=== PATIENT | female | born 1995 | race American Indian/Alaskan Native ===

== ENCOUNTER 2017-08-11 17:19 | Inpatient (IN) | payer MEDICAID ==
[2017-08-11] MEDS ORDERED: Misoprostol 50 MCG (1/2 of 100 MCG) Tab VAG ONE (17:41)
[2017-08-11] MEDS ORDERED: Acetaminophen 325 MG Tab PO PRN (18:14)
[2017-08-11] MEDS ORDERED: fentaNYL 100 MCG/2 ML SDV IVPUSH PRN (18:14)
[2017-08-11] MEDS ORDERED: Sodium Chloride 0.9% 10 ML Syringe FLUSH PRN (18:14)
[2017-08-11] MEDS ORDERED: Lactated Ringers 1,000 ML IV ONE ×2 (18:20)
[2017-08-11] MEDS ORDERED: ePHEDrine 50 MG/ML SDV IVPUSH ONE (18:20)
--- NOTE | 2017-08-11 18:26 | PCM.LDHP ---
L&D History of Present Illness - General Date of Service: 08/11/17 (labor) Admit Problem/Dx: Patient Status Order with Admit Dx/Problem 08/11/17 18:14 Patient Status [ADT] Routine Admission Diagnosis/Problem Admission Diagnosis/Problem Labor established Source of Information: Patient History Limitations: Reports: No Limitations - History of Present Illness Introduction:: Veronica has been in latent labor since last night. Over the course of the day her contractions have increased in duration and intensity. No leaking of fluid. Very uncomfortable.Returned at 1745 this evening as she just can't take it anymore. She has had adequate care and her GBS is negative HIV neg, Rubella immune, and ABO is A pos. SARATH 08/22/17 based on early US, LMP SARATH is 08/15/17 so she is somewhere around 39 weeks gestation. CE this evening 4/100/+1, AROM clear fluid Timing/Duration: Reports: minutes: (4), constant/continuous Location, : Reports: Abdomen Quality: Reports: Pressure Severity: Severe Improves with: Reports: None Worsens with: Reports: None Associated Symptoms: Reports: vaginal fluid - Related Data Allergies/Adverse Reactions: Allergies Allergy/AdvReac Type Severity Reaction Status Date / Time estradiol cypionate Allergy Bleeding Verified 06/08/16 00:08 [From Depo-Estradiol] Home Medications: Home Meds Vits #93/Iron Fum/FA [ Formula Tablet] 1 tab PO DAILY 08/11/17 [History] Past Medical History [facility] History: Reports: : 2 Para: 0 LMP (Approximate): (SARATH 08/22/17) Musculoskeletal History: Reports: Other (See Below) Other Musculoskeletal History: collarbone fx Dermatologic History: Reports: Other (See Below) Other Dermatologic History: excema Social & Family History - Tobacco Use Smoking Status *Q: Never Smoker - Recreational Drug Use Recreational Drug Use: No H&P Review of Systems - Review of Systems: Review Of Systems: See Below General: Reports: No Symptoms HEENT: Reports: No Symptoms Pulmonary: Reports: No Symptoms Cardiovascular: Reports: No Symptoms Gastrointestinal: Reports: No Symptoms Genitourinary: Reports: No Symptoms Musculoskeletal: Reports: No Symptoms Skin: Reports: No Symptoms Psychiatric: Reports: No Symptoms Neurological: Reports: No Symptoms Hematologic/Lymphatic: Reports: No Symptoms Immunologic: Reports: No Symptoms L&D Exam - Exam Exam: See Below - Vital Signs Vital Signs: Last Vital Signs Temp 99.3 F 08/11/17 17:30 Pulse 101 H 08/11/17 17:30 Resp 16 08/11/17 17:30 BP 128/77 08/11/17 17:30 Pulse Ox 95 08/11/17 17:30 Weight: 211 lb 10.3 oz - OB Specific Contraction Intensity: Strong Movement: Active Heart Tones: Present Heart Tones per Min: 140 Heart Rate (FHR) Variability: Moderate (6-25 bmp) Presentation: Vertex Estimated Weight: 8-9 pounds - Hogue Score Hogue Score Cervix Position: Posterior Hogue Score Consistency: Soft Hogue Score Effacement: >80% Hogue Score Dilation: 3-4 cm Hogue Score 's Station: +1, +2 Hogue Score Total: 10 - Exam General: Alert, Oriented HEENT: PERRLA, Hearing Intact, Mucosa Moist & Rector Neck: Supple Lungs: Clear to Auscultation Cardiovascular: Regular Rate GI/Abdominal Exam: Normal Bowel Sounds Rectal Exam: Normal Exam Genitourinary: Cervical dilitation, Enlarged uterus Back Exam: Normal Inspection, Full Range of Motion Extremities: Normal Inspection, Normal Range of Motion, Non-Tender, No Pedal Edema, Normal Capillary Refill Skin: Warm, Dry, Intact Neurological: Cranial Nerves Intact, Reflexes Equal Bilateral Psychiatric: Alert, Normal Affect, Normal Mood - Problem List (1) SNOMED Code(s): 34698665 ICD Code: Z34.90 - ENCNTR FOR SUPRVSN OF NORMAL , UNSP, UNSP TRIMESTER Status: Acute Current Visit: Yes Qualifiers: Weeks of gestation: 38 weeks Qualified Code(s): Z3A.38 - 38 weeks gestation of (2) Active labor SNOMED Code(s): 68995340 ICD Code: TQX0108 - Status: Acute Current Visit: Yes Problem List Initiated/Reviewed/Updated: Yes Orders Last 24hrs: Active Orders 24 hr Category Date Time Status Patient Status [ADT] Routine ADT 08/11/17 18:14 Ordered Antiembolic Devices [RC] .Routine Care 08/11/17 18:18 Ordered Communication Order [RC] ASDIRECTED Care 08/11/17 18:14 Ordered Heart Tones [RC] PER UNIT ROUTINE Care 08/11/17 18:14 Ordered Local Anesthetic Infusion Pump [RC] ASDIRECTED Care 08/11/17 18:20 Ordered Local Anesthetic Infusion Pump [RC] ASDIRECTED Care 08/11/17 18:20 Ordered May Shower [RC] ASDIRECTED Care 08/11/17 18:14 Ordered Notify Provider Vital Signs [RC] PRN Care 08/11/17 18:14 Ordered Notify Provider [RC] PRN Care 08/11/17 18:14 Ordered OB Check [OM.PC] Click to Edit Care 08/11/17 17:43 Ordered PCEA Epidural [RC] ASDIRECTED Care 08/11/17 18:20 Ordered PCEA Epidural [RC] ASDIRECTED Care 08/11/17 18:20 Ordered Up ad Ashley [RC] ASDIRECTED Care 08/11/17 18:14 Ordered VTE/DVT Education [RC] Click to Edit Care 08/11/17 18:18 Ordered Vital Signs [RC] PER UNIT ROUTINE Care 08/11/17 18:14 Ordered CBC W/O DIFF,HEMOGRAM [HEME] Routine Lab 08/11/17 18:14 Ordered DRUG SCREEN, URINE [URCHEM] Routine Lab 08/11/17 18:14 Uncollected Acetaminophen [Tylenol] Med 08/11/17 18:14 Ordered 650 mg PO Q4H PRN Lactated Ringers [Ringers, Lactated] 1,000 ml Med 08/11/17 18:20 Ordered IV .BOLUS Lactated Ringers [Ringers, Lactated] 1,000 ml Med 08/11/17 18:20 Ordered IV .BOLUS Ondansetron [Zofran ODT] Med 08/11/17 18:14 Ordered 4 mg PO Q4H PRN Sodium Chloride 0.9% [Saline Flush] Med 08/11/17 18:14 Ordered 10 ml FLUSH ASDIRECTED PRN ePHEDrine [ePHEDrine Sulfate] Med 08/11/17 18:20 Once 5 mg IVPUSH ONETIME ONE fentaNYL [Sublimaze] Med 08/11/17 18:14 Ordered 100 mcg IVPUSH Q1H PRN DVT/VTE Prophylaxis Reflex [OM.PC] Routine Oth 08/11/17 18:14 Ordered Epidural Catheter Management [OM.PC] Urgent Oth 08/11/17 18:20 Ordered Saline Lock Insert [OM.PC] Routine Oth 08/11/17 18:14 Ordered Resuscitation Status Routine Resus Stat 08/11/17 18:14 Ordered Medication Orders Acetaminophen (Tylenol) 650 mg PO Q4H PRN PRN Reason: Pain (Mild 1-3) and fever Fentanyl (Sublimaze) 100 mcg IVPUSH Q1H PRN PRN Reason: Pain (moderate 4-6) Ondansetron HCl (Zofran Odt) 4 mg PO Q4H PRN PRN Reason: Nausea/Vomiting Sodium Chloride (Saline Flush) 10 ml FLUSH ASDIRECTED PRN PRN Reason: Keep Vein Open Assessment/Plan Comment:: 08/11/17 38 4/7 22 yr old Active labor, AROM clear fluid GBS negative HIV neg ABO A pos Rubella immune requesting epidural for pain management She is a very difficult exam and the baby is low. Anticipate a vaginal delivery of a large baby
[2017-08-11] MEDS ORDERED: Ropivacaine 100 ML ONE (18:46)
[2017-08-11] MEDS ORDERED: Oxytocin 10 Units/1 ML SDV ONE ×3 (19:07→23:08)
[2017-08-11] MEDS ORDERED: Naloxone 0.4 MG/ML SDV ONE (19:07)
[2017-08-11] MEDS ORDERED: Lidocaine 1% 50 ML MDV ONE (19:07)
[2017-08-11] MEDS ORDERED: Lactated Ringers 1,000 ML IV SCH (19:15)
[2017-08-11] MEDS ORDERED: Naloxone 0.4 MG/ML SDV IVPUSH PRN (19:26)
[2017-08-11] MEDS ORDERED: ePHEDrine 50 MG/ML SDV IVPUSH PRN (19:26)
--- NOTE | 2017-08-11 19:48 | PCM.PNLD ---
Labor Progress Note - VS & Meds Vital Signs: Last Vital Signs Temp 100.1 F 08/11/17 19:11 Pulse 97 08/11/17 19:35 Resp 16 08/11/17 19:35 BP 113/73 08/11/17 19:35 Pulse Ox 99 08/11/17 19:35 Active Medications: Current Medications Acetaminophen (Tylenol) 650 mg PO Q4H PRN PRN Reason: Pain (Mild 1-3) and fever Ephedrine Sulfate (Ephedrine Sulfate) 5 - 10 mg IVPUSH ASDIRECTED PRN PRN Reason: IF SYSTOLIC BP LESS THAN 100 Fentanyl (Sublimaze) 100 mcg IVPUSH Q1H PRN PRN Reason: Pain (moderate 4-6) Lactated Ringer's (Ringers, Lactated) 1,000 mls @ 100 mls/hr IV ASDIRECTED HILARIO Last Admin: 08/11/17 19:15 Dose: 100 mls/hr Oxytocin/Sodium Chloride (Pitocin In Ns 20 Units/1,000 Ml) 1,000 mls @ 6 mls/ hr IV TITRATE HILARIO; 2 MUNITS/MIN PRN Reason: Protocol Naloxone HCl (Narcan) 0.1 mg IVPUSH Q5M PRN PRN Reason: IF RESP RATE LESS THAN 6 Ondansetron HCl (Zofran Odt) 4 mg PO Q4H PRN PRN Reason: Nausea/Vomiting Sodium Chloride (Saline Flush) 10 ml FLUSH ASDIRECTED PRN PRN Reason: Keep Vein Open Discontinued Medications Ephedrine Sulfate (Ephedrine Sulfate) 5 mg IVPUSH ONETIME ONE Stop: 08/11/17 18:21 Lactated Ringer's (Ringers, Lactated) 1,000 mls @ 999 mls/hr IV .BOLUS ONE Stop: 08/11/17 19:20 Last Admin: 08/11/17 18:15 Dose: 999 mls/hr Lactated Ringer's (Ringers, Lactated) 1,000 mls @ 999 mls/hr IV .BOLUS ONE Stop: 08/11/17 19:20 Last Admin: 08/11/17 19:14 Dose: Not Given Ropivacaine (Naropin 0.2%) Confirm Administered Dose 100 mls @ as directed .ROUTE .STK-MED ONE Stop: 08/11/17 18:47 Oxytocin/Sodium Chloride (Pitocin In Ns 20 Units/1,000 Ml) Confirm Administered Dose 20 unit in 1,000 mls @ as directed .ROUTE .STK-MED ONE Stop: 08/11/17 19:08 Lidocaine HCl (Xylocaine 1%) Confirm Administered Dose 100 ml .ROUTE .STK-MED ONE Stop: 08/11/17 19:08 Misoprostol (Cytotec) 50 mcg VAG ONETIME ONE Stop: 08/11/17 17:42 Naloxone HCl (Narcan) Confirm Administered Dose 0.4 mg .ROUTE .STK-MED ONE Stop: 08/11/17 19:08 Oxytocin (Pitocin) Confirm Administered Dose 10 unit .ROUTE .STK-MED ONE Stop: 08/11/17 19:08 - Uterine Contractions Uterine Monitoring Mode: External [place] Contraction Frequency (min): 2 Contraction Duration (sec): 60-110 Contraction Intensity: Moderate Uterine Resting Tone: Soft - Monitoring Heart Rate (FHR) Baseline: 140 Heart Rate (FHR) Variability: Moderate (6-25 bmp) Accelerations: Present, 15x15 Decelerations: None - Vaginal Exam Dilation (cm): 4 Effacement (Percent): 95 Station: -1 Cervical Position: Midposition Sterile Vaginal Exam Performed By: Ama Sierra - Labor Progress (Free Text) Labor Progress: contractions spacing out after epidural placed. Will add pitocin to actively manage labor. Veronica is now comfortable Hair in place and on peanut ball. Planning vaginal delivery.
[2017-08-11] MEDS ORDERED: Ropivacaine 100 ML EPIDUR SCH (20:33)
--- NOTE | 2017-08-11 20:48 | PCM.PNLD ---
Labor Progress Note - VS & Meds Vital Signs: Last Vital Signs Temp 98.9 F 08/11/17 20:15 Pulse 91 08/11/17 20:15 Resp 18 08/11/17 20:15 BP 126/82 08/11/17 20:15 Pulse Ox 99 08/11/17 20:15 Active Medications: Current Medications Acetaminophen (Tylenol) 650 mg PO Q4H PRN PRN Reason: Pain (Mild 1-3) and fever Ephedrine Sulfate (Ephedrine Sulfate) 5 - 10 mg IVPUSH ASDIRECTED PRN PRN Reason: IF SYSTOLIC BP LESS THAN 100 Fentanyl (Sublimaze) 100 mcg IVPUSH Q1H PRN PRN Reason: Pain (moderate 4-6) Lactated Ringer's (Ringers, Lactated) 1,000 mls @ 100 mls/hr IV ASDIRECTED HILARIO Last Admin: 08/11/17 19:15 Dose: 100 mls/hr Oxytocin/Sodium Chloride (Pitocin In Ns 20 Units/1,000 Ml) 20 unit in 1,000 mls @ 6 mls/hr IV TITRATE HILARIO; 2 MUNITS/MIN PRN Reason: Protocol Last Titration: 08/11/17 20:46 Dose: 2 munits/min, 6 mls/hr Ropivacaine (Naropin 0.2%) 100 mls @ 0 mls/hr EPIDUR ASDIRECTED HILARIO; Titrate PRN Reason: Protocol Naloxone HCl (Narcan) 0.1 mg IVPUSH Q5M PRN PRN Reason: IF RESP RATE LESS THAN 6 Ondansetron HCl (Zofran Odt) 4 mg PO Q4H PRN PRN Reason: Nausea/Vomiting Sodium Chloride (Saline Flush) 10 ml FLUSH ASDIRECTED PRN PRN Reason: Keep Vein Open Discontinued Medications Ephedrine Sulfate (Ephedrine Sulfate) 5 mg IVPUSH ONETIME ONE Stop: 08/11/17 18:21 Last Admin: 08/11/17 20:30 Dose: Not Given Lactated Ringer's (Ringers, Lactated) 1,000 mls @ 999 mls/hr IV .BOLUS ONE Stop: 08/11/17 19:20 Last Admin: 08/11/17 18:15 Dose: 999 mls/hr Lactated Ringer's (Ringers, Lactated) 1,000 mls @ 999 mls/hr IV .BOLUS ONE Stop: 08/11/17 19:20 Last Admin: 08/11/17 19:14 Dose: Not Given Ropivacaine (Naropin 0.2%) Confirm Administered Dose 100 mls @ as directed .ROUTE .STK-MED ONE Stop: 08/11/17 18:47 Oxytocin/Sodium Chloride (Pitocin In Ns 20 Units/1,000 Ml) Confirm Administered Dose 20 unit in 1,000 mls @ as directed .ROUTE .STK-MED ONE Stop: 08/11/17 19:08 Last Admin: 08/11/17 19:49 Dose: Not Given Lidocaine HCl (Xylocaine 1%) Confirm Administered Dose 100 ml .ROUTE .STK-MED ONE Stop: 08/11/17 19:08 Misoprostol (Cytotec) 50 mcg VAG ONETIME ONE Stop: 08/11/17 17:42 Naloxone HCl (Narcan) Confirm Administered Dose 0.4 mg .ROUTE .STK-MED ONE Stop: 08/11/17 19:08 Oxytocin (Pitocin) Confirm Administered Dose 10 unit .ROUTE .STK-MED ONE Stop: 08/11/17 19:08 - Uterine Contractions Uterine Monitoring Mode: External [place] Contraction Frequency (min): 2-6 Contraction Duration (sec): 40-70 Contraction Intensity: Moderate Uterine Resting Tone: Soft - Monitoring Heart Rate (FHR) Baseline: 140 Heart Rate (FHR) Variability: Moderate (6-25 bmp) Accelerations: Present, 15x15 Decelerations: None - Vaginal Exam Dilation (cm): 10 Effacement (Percent): 100 Station: 2 Cervical Position: Anterior Sterile Vaginal Exam Performed By: Mignon Sidhu Vaginal Exam Comment: will labor down for the next 30 minutes and cut the epidural some. She is pretty dense as far as feeling and leg mobilty. - Labor Progress (Free Text) Labor Progress: going well will push soon.
--- NOTE | 2017-08-11 21:52 | PCM.PNLD ---
Labor Progress Note - VS & Meds Vital Signs: Last Vital Signs Temp 99.4 F 08/11/17 20:45 Pulse 112 H 08/11/17 20:45 Resp 16 08/11/17 20:45 BP 132/94 H 08/11/17 20:45 Pulse Ox 97 08/11/17 20:45 Active Medications: Current Medications Acetaminophen (Tylenol) 650 mg PO Q4H PRN PRN Reason: Pain (Mild 1-3) and fever Ephedrine Sulfate (Ephedrine Sulfate) 5 - 10 mg IVPUSH ASDIRECTED PRN PRN Reason: IF SYSTOLIC BP LESS THAN 100 Fentanyl (Sublimaze) 100 mcg IVPUSH Q1H PRN PRN Reason: Pain (moderate 4-6) Lactated Ringer's (Ringers, Lactated) 1,000 mls @ 100 mls/hr IV ASDIRECTED HILARIO Last Admin: 08/11/17 19:15 Dose: 100 mls/hr Oxytocin/Sodium Chloride (Pitocin In Ns 20 Units/1,000 Ml) 20 unit in 1,000 mls @ 6 mls/hr IV TITRATE HILARIO; 2 MUNITS/MIN PRN Reason: Protocol Last Titration: 08/11/17 20:46 Dose: 2 munits/min, 6 mls/hr Ropivacaine (Naropin 0.2%) 100 mls @ 0 mls/hr EPIDUR ASDIRECTED HILARIO; Titrate PRN Reason: Protocol Naloxone HCl (Narcan) 0.1 mg IVPUSH Q5M PRN PRN Reason: IF RESP RATE LESS THAN 6 Ondansetron HCl (Zofran Odt) 4 mg PO Q4H PRN PRN Reason: Nausea/Vomiting Sodium Chloride (Saline Flush) 10 ml FLUSH ASDIRECTED PRN PRN Reason: Keep Vein Open Discontinued Medications Ephedrine Sulfate (Ephedrine Sulfate) 5 mg IVPUSH ONETIME ONE Stop: 08/11/17 18:21 Last Admin: 08/11/17 20:30 Dose: Not Given Lactated Ringer's (Ringers, Lactated) 1,000 mls @ 999 mls/hr IV .BOLUS ONE Stop: 08/11/17 19:20 Last Admin: 08/11/17 18:15 Dose: 999 mls/hr Lactated Ringer's (Ringers, Lactated) 1,000 mls @ 999 mls/hr IV .BOLUS ONE Stop: 08/11/17 19:20 Last Admin: 08/11/17 19:14 Dose: Not Given Ropivacaine (Naropin 0.2%) Confirm Administered Dose 100 mls @ as directed .ROUTE .STK-MED ONE Stop: 08/11/17 18:47 Oxytocin/Sodium Chloride (Pitocin In Ns 20 Units/1,000 Ml) Confirm Administered Dose 20 unit in 1,000 mls @ as directed .ROUTE .STK-MED ONE Stop: 08/11/17 19:08 Last Admin: 08/11/17 19:49 Dose: Not Given Lidocaine HCl (Xylocaine 1%) Confirm Administered Dose 100 ml .ROUTE .STK-MED ONE Stop: 08/11/17 19:08 Misoprostol (Cytotec) 50 mcg VAG ONETIME ONE Stop: 08/11/17 17:42 Naloxone HCl (Narcan) Confirm Administered Dose 0.4 mg .ROUTE .STK-MED ONE Stop: 08/11/17 19:08 Oxytocin (Pitocin) Confirm Administered Dose 10 unit .ROUTE .STK-MED ONE Stop: 08/11/17 19:08 - Uterine Contractions Uterine Monitoring Mode: External [place] Contraction Frequency (min): 2-6 Contraction Duration (sec): 40-70 Contraction Intensity: Moderate Uterine Resting Tone: Soft - Monitoring Heart Rate (FHR) Baseline: 140 Heart Rate (FHR) Variability: Moderate (6-25 bmp) Accelerations: Present, 15x15 Decelerations: None - Vaginal Exam Dilation (cm): 10 Effacement (Percent): 100 Station: 2 Cervical Position: Anterior Sterile Vaginal Exam Performed By: Mignon Sidhu Vaginal Exam Comment: epidural so dense. Unable to feel contractions. Epidural decreased. has some feeling in legs, poor pushing effort. rest until 2200 and try pushing again - Labor Progress (Free Text) Labor Progress: no progress with pushing
--- NOTE | 2017-08-11 22:47 | PCM.PNLD ---
Labor Progress Note - VS & Meds Vital Signs: Last Vital Signs Temp 98.1 F 08/11/17 22:00 Pulse 92 08/11/17 22:00 Resp 16 08/11/17 22:00 BP 117/69 08/11/17 22:00 Pulse Ox 94 L 08/11/17 22:00 Active Medications: Current Medications Acetaminophen (Tylenol) 650 mg PO Q4H PRN PRN Reason: Pain (Mild 1-3) and fever Ephedrine Sulfate (Ephedrine Sulfate) 5 - 10 mg IVPUSH ASDIRECTED PRN PRN Reason: IF SYSTOLIC BP LESS THAN 100 Fentanyl (Sublimaze) 100 mcg IVPUSH Q1H PRN PRN Reason: Pain (moderate 4-6) Lactated Ringer's (Ringers, Lactated) 1,000 mls @ 100 mls/hr IV ASDIRECTED HILARIO Last Admin: 08/11/17 19:15 Dose: 100 mls/hr Oxytocin/Sodium Chloride (Pitocin In Ns 20 Units/1,000 Ml) 20 unit in 1,000 mls @ 6 mls/hr IV TITRATE HILARIO; 2 MUNITS/MIN PRN Reason: Protocol Last Titration: 08/11/17 20:46 Dose: 2 munits/min, 6 mls/hr Ropivacaine (Naropin 0.2%) 100 mls @ 0 mls/hr EPIDUR ASDIRECTED HILARIO; Titrate PRN Reason: Protocol Naloxone HCl (Narcan) 0.1 mg IVPUSH Q5M PRN PRN Reason: IF RESP RATE LESS THAN 6 Ondansetron HCl (Zofran Odt) 4 mg PO Q4H PRN PRN Reason: Nausea/Vomiting Sodium Chloride (Saline Flush) 10 ml FLUSH ASDIRECTED PRN PRN Reason: Keep Vein Open Discontinued Medications Ephedrine Sulfate (Ephedrine Sulfate) 5 mg IVPUSH ONETIME ONE Stop: 08/11/17 18:21 Last Admin: 08/11/17 20:30 Dose: Not Given Lactated Ringer's (Ringers, Lactated) 1,000 mls @ 999 mls/hr IV .BOLUS ONE Stop: 08/11/17 19:20 Last Admin: 08/11/17 18:15 Dose: 999 mls/hr Lactated Ringer's (Ringers, Lactated) 1,000 mls @ 999 mls/hr IV .BOLUS ONE Stop: 08/11/17 19:20 Last Admin: 08/11/17 19:14 Dose: Not Given Ropivacaine (Naropin 0.2%) Confirm Administered Dose 100 mls @ as directed .ROUTE .STK-MED ONE Stop: 08/11/17 18:47 Oxytocin/Sodium Chloride (Pitocin In Ns 20 Units/1,000 Ml) Confirm Administered Dose 20 unit in 1,000 mls @ as directed .ROUTE .STK-MED ONE Stop: 08/11/17 19:08 Last Admin: 08/11/17 19:49 Dose: Not Given Lidocaine HCl (Xylocaine 1%) Confirm Administered Dose 100 ml .ROUTE .STK-MED ONE Stop: 08/11/17 19:08 Misoprostol (Cytotec) 50 mcg VAG ONETIME ONE Stop: 08/11/17 17:42 Naloxone HCl (Narcan) Confirm Administered Dose 0.4 mg .ROUTE .STK-MED ONE Stop: 08/11/17 19:08 Oxytocin (Pitocin) Confirm Administered Dose 10 unit .ROUTE .STK-MED ONE Stop: 08/11/17 19:08 - Uterine Contractions Uterine Monitoring Mode: External [place] Contraction Frequency (min): 2-6 Contraction Duration (sec): 40-70 Contraction Intensity: Moderate Uterine Resting Tone: Soft - Monitoring Heart Rate (FHR) Baseline: 140 Heart Rate (FHR) Variability: Moderate (6-25 bmp) Accelerations: Present, 15x15 Decelerations: None - Vaginal Exam Dilation (cm): 10 Effacement (Percent): 100 Station: 2 Cervical Position: Anterior Sterile Vaginal Exam Performed By: Mignon Sidhu Vaginal Exam Comment: No descent. No progress with pushing even after decreasing the epidural rate. - Labor Progress (Free Text) Labor Progress: Unable to push baby down far enough for me to apply the vacuum. Reviewed continuing to push vs c section now or later. It was decided to proceed with the c section. Surgical staff called and patient prepped for surgery
[2017-08-11] MEDS ORDERED: ePHEDrine 50 MG/ML SDV ONE (22:58)
[2017-08-11] MEDS ORDERED: Ondansetron 4 MG/2 ML SDV ONE (22:58)
[2017-08-11] MEDS ORDERED: Lactated Ringers 1,000 ML ONE (22:58)
[2017-08-11] MEDS ORDERED: Lactated Ringers 2,000 ML ONE (22:58)
[2017-08-11] MEDS ORDERED: Bupivacaine 0.5% 30 ML SDV ONE (23:00)
[2017-08-11] MEDS ORDERED: ceFAZolin 1 GM Vial ONE (23:14)
[2017-08-11] MEDS ORDERED: Morphine PF 10 MG/10 ML SDV ONE (23:30)
[2017-08-11] MEDS ORDERED: fentaNYL 250 MCG/5 ML SDV ONE (23:36)
[2017-08-11] MEDS ORDERED: Propofol 200 MG/20 ML SDV ONE ×2 (23:41→23:55)
[2017-08-12] MEDS ORDERED: Ondansetron 4 MG/2 ML SDV IVPUSH PRN (00:21)
[2017-08-12] MEDS: Ondansetron 4 MG Tab.DIS PO PRN ×2 (00:36→08:11)
[2017-08-12] MEDS ORDERED: Naloxone 0.4 MG/ML SDV IVPUSH PRN (00:44)
--- NOTE | 2017-08-12 01:10 | ANES ---
DATE OF SERVICE: 08/11/2017 TIME: 1845 hours. INDICATIONS: I was called to the Labor and Delivery Unit to evaluate Ms. Lopez for an epidural. This is her first baby. She is 39 weeks and approximately 4 to 5 cm. The risks and benefits of the procedure were explained to the patient and she wished to proceed with labor epidural. DESCRIPTION OF THE PROCEDURE: She was placed in a sitting position. Her back was prepped x3 with Betadine, 1% lidocaine skin local was used. The epidural was placed at L3-4 using a 17-gauge Tuohy needle in loss of resistance technique. The epidural had very good feel throughout and the epidural space was easily identified. There was negative CSF, negative blood, and negative paresthesias noted. Therefore, a catheter was threaded to 12 cm at the skin. There was negative CSF, negative blood, and negative paresthesias with the catheter as well. A 1.5% lidocaine test dose of 3 mL was given and this test dose was negative. The catheter was then secured with Tegaderm and tape, and the patient was placed in a supine position. A 12 mL bolus of 0.2% ropivacaine was given. She had good relief from the initial bolus and her vital signs remained stable. Therefore, 0.2% ropivacaine drip was started at 12 mL/h. Her vital signs remained stable. She tolerated the procedure very nicely and got good relief. We will continue to monitor her throughout her Labor and Delivery stay. Gilbert Ya CRNA /[id number]
[2017-08-12] MEDS: HYDROmorphone/Normal Saline 15 MG/30 ML PCA IV PRN (01:11)
[2017-08-12] MEDS: D5 1/2 NS w/ 20 mEq/L KCl 1,000 ML IV SCH ×3 (04:10→20:05)
[2017-08-12] MEDS ORDERED: Lactated Ringers 500 ML IV ONE (07:11)
[2017-08-12] MEDS ORDERED: Lactated Ringers 500 ML IV SCH (07:15)
--- NOTE | 2017-08-12 12:37 | OR ---
DATE OF PROCEDURE: 08/11/2017 PREOPERATIVE DIAGNOSES: Term , active labor, failure to progress. POSTOPERATIVE DIAGNOSES: Term , active labor, failure to progress. PROCEDURE: section. SURGEON: Esteban Meneses MD. HELPER MAINTENANCE CLEANING: Monica Sidhu CNM. Per [employer] quality of care standards, this procedure requires a nutritional assistant. ANESTHESIA: Epidural. INDICATION: This is a 22-year-old white female who is with her first child. Her EDC is August 15. She was admitted earlier today in active labor. She labored hard all day and suffered failure to progress. A request was made for a section. I counseled her for this, and she gave her informed consent to proceed. DESCRIPTION OF PROCEDURE: An epidural catheter was already in place. She received epidural anesthesia. A Hair catheter was already in place. A wedge was placed under her right flank. Her abdomen was prepped and draped in the usual sterile fashion. Time-out was held. A Pfannenstiel incision was made. This was carried deep using Bovie cautery to the fascia. The fascia was incised transversely. Upper and lower subfascial flaps were developed from the umbilicus to the pubis. The muscles in the midline were and the peritoneum was elevated and incised. The peritoneal incision was extended superiorly and inferiorly the length of the flaps using Bovie cautery while protecting underlying structures. The bladder flap was dissected free from the lower uterine segment. A transverse lower uterine segment incision was made releasing normal-appearing amniotic fluid. The incision was extended laterally in each direction and curved superiorly using bandage scissors and bluntly. The child's head was delivered. It was noted to be impacted in the pelvis and had to be brought back. There was a caput. The nose and mouth were aspirated free by Monica Sidhu. The child's body was delivered. This was found to be a baby boy, ultimately shown to have scores of 8 and 9. The cord was doubly divided and Mignon Sidhu attended to the child. Cord blood was collected. The uterus was delivered up onto the anterior abdominal wall. The placenta was delivered. It appeared to have a three vessel umbilical cord. Residual membranes were removed. 10 units of Pitocin was directly injected into the uterine body and IV Pitocin was started by the Anesthesia Service. The transverse lower uterine segment incision was then closed with a running locking stitch of #2 Vicryl. A second running locking stitch of #1 Vicryl was placed over the first to further bolster the closure. The retrouterine space was irrigated and suctioned dry. The bladder flap was re- attached up over the lower uterine segment with a running stitch of #1 Vicryl. The uterus was then returned to the abdominal cavity. All looked well. The muscles and peritoneum in the midline were closed with a running stitch of #1 Vicryl. The incision was irrigated and suctioned dry. The fascia was closed with a running stitch of #1 Vicryl. The incision was again irrigated and suctioned dry. 4-0 Vicryl using a subcuticular stitch was placed to approximate the skin. Dermabond was applied. The patient tolerated the procedure well and was brought from the operating room in good condition. Esteban Meneses MD /[id number]
[2017-08-12] MEDS: Acetaminophen/HYDROcodone 325-5 MG Tab PO PRN ×2 (15:19→20:22)
[2017-08-12] MEDS: Docusate Sodium 100 MG Cap PO SCH (23:14)
[2017-08-12] MEDS: Ferrous Sulfate 325 MG Tab PO SCH (23:14)
[2017-08-13] MEDS: Acetaminophen/HYDROcodone 325-5 MG Tab PO PRN ×4 (03:04→16:36)
[2017-08-13] MEDS: D5 1/2 NS w/ 20 mEq/L KCl 1,000 ML IV SCH (03:08)
[2017-08-13] MEDS: HYDROmorphone/Normal Saline 15 MG/30 ML PCA IV PRN (07:06)
[2017-08-13] MEDS: Docusate Sodium 100 MG Cap PO SCH ×2 (08:53→20:19)
[2017-08-13] MEDS: Ferrous Sulfate 325 MG Tab PO SCH ×2 (08:53→17:52)
--- NOTE | 2017-08-13 10:31 | PCM.SURGPN ---
- General Info Date of Service: 08/13/17 Date of Surgery/Procedure: 08/12/17 POD#: 1 Post-Op Diagnosis: section Functional Status: Reports: Pain Controlled, Tolerating Diet, Ambulating, Urinating (Hair catheter was left in yesterday, now has large UOP so will be removed. ) - Review of Systems General: Reports: No Symptoms HEENT: Reports: No Symptoms Pulmonary: Reports: No Symptoms Cardiovascular: Reports: No Symptoms Gastrointestinal: Reports: No Symptoms. Denies: Nausea Genitourinary: Reports: No Symptoms Musculoskeletal: Reports: No Symptoms Skin: Reports: No Symptoms Neurological: Reports: No Symptoms Psychiatric: Reports: No Symptoms - Patient Data Vitals - Most Recent: Last Vital Signs Temp 99.7 F 08/13/17 10:10 Pulse 123 H 08/13/17 10:10 Resp 16 08/13/17 10:10 BP 126/71 08/13/17 10:10 Pulse Ox 94 L 08/13/17 08:04 Weight - Most Recent: 250 lb 2.49 oz I&O - Last 24 Hours: Intake & Output 08/12/17 08/13/17 08/13/17 22:59 06:59 14:59 Intake Total 2582 2220 0 Output Total 2150 1400 1350 Balance 432 820 -1350 Lab Results Last 24 Hrs: Laboratory Results - last 24 hr 08/12/17 08/13/17 08/13/17 Range/Units 18:17 05:31 05:36 WBC 16.3 H 12.6 H (4.5-11.0) K/uL RBC 2.51 L 2.23 L (3.30-5.50) M/uL Hgb 7.3 L 6.5 L* (12.0-15.0) g/dL Hct 22.5 L 20.3 L (36.0-48.0) % MCV 90 91 (80-98) fL MCH 29 29 (27-31) pg MCHC 32 32 (32-36) % Plt Count 217 191 (150-400) K/uL PT (9.5-12.0) sec INR (0.80-1.20) APTT (27.0-36.0) sec Sodium (140-148) mmol/L Potassium (3.6-5.2) mmol/L Chloride (100-108) mmol/L Carbon Dioxide (21-32) mmol/L Anion Gap (5.0-14.0) mmol/L BUN (7-18) mg/dL Creatinine (0.6-1.0) mg/dL Est Cr Clr Drug Dosing mL/min Estimated GFR (MDRD) (>60) Glucose (74-106) mg/dL Calcium (8.5-10.1) mg/dL Blood Type A POSITIVE Gel Antibody Screen Negative Crossmatch See Detail 08/13/17 08/13/17 Range/Units 05:36 05:36 WBC (4.5-11.0) K/uL RBC (3.30-5.50) M/uL Hgb (12.0-15.0) g/dL Hct (36.0-48.0) % MCV (80-98) fL MCH (27-31) pg MCHC (32-36) % Plt Count (150-400) K/uL PT 10.0 (9.5-12.0) sec INR 0.94 (0.80-1.20) APTT 28.7 (27.0-36.0) sec Sodium 135 L (140-148) mmol/L Potassium 3.9 (3.6-5.2) mmol/L Chloride 104 (100-108) mmol/L Carbon Dioxide 26 (21-32) mmol/L Anion Gap 8.9 (5.0-14.0) mmol/L BUN 8 D (7-18) mg/dL Creatinine 0.6 (0.6-1.0) mg/dL Est Cr Clr Drug Dosing 123.72 mL/min Estimated GFR (MDRD) > 60 (>60) Glucose 91 (74-106) mg/dL Calcium 8.0 L (8.5-10.1) mg/dL Blood Type Gel Antibody Screen Crossmatch Med Orders - Current: Current Medications Acetaminophen (Tylenol) 650 mg PO Q4H PRN PRN Reason: Pain (Mild 1-3) and fever Hydrocodone Bitart/Acetaminophen ([place] 325-5 Mg) 1 - 2 tab PO Q4H PRN PRN Reason: Pain Last Admin: 08/13/17 08:50 Dose: 1 tab Docusate Sodium (Colace) 100 mg PO BID HILARIO Last Admin: 08/13/17 08:53 Dose: 100 mg Ferrous Sulfate (Ferrous Sulfate) 325 mg PO BIDMEALS [facility] Last Admin: 08/13/17 08:53 Dose: 325 mg Lactated Ringer's (Ringers, Lactated) 1,000 mls @ 100 mls/hr IV ASDIRECTED [facility] Last Admin: 08/11/17 19:15 Dose: 100 mls/hr Naloxone HCl (Narcan) 0.1 mg IVPUSH Q5M PRN PRN Reason: IF RESP RATE LESS THAN 6 Ondansetron HCl (Zofran Odt) 4 mg PO Q4H PRN PRN Reason: Nausea/Vomiting Last Admin: 08/12/17 08:11 Dose: 4 mg Ondansetron HCl (Zofran) 4 mg IVPUSH Q6H PRN PRN Reason: Nausea/Vomiting Sodium Chloride (Saline Flush) 10 ml FLUSH ASDIRECTED PRN PRN Reason: Keep Vein Open Discontinued Medications Bupivacaine HCl (Marcaine 0.5%) Confirm Administered Dose 30 ml .ROUTE .STK-MED ONE Stop: 08/11/17 23:01 Cefazolin Sodium (Ancef) Confirm Administered Dose 2 gm .ROUTE .STK-MED ONE Stop: 08/11/17 23:15 Ephedrine Sulfate (Ephedrine Sulfate) 5 mg IVPUSH ONETIME ONE Stop: 08/11/17 18:21 Last Admin: 08/11/17 20:30 Dose: Not Given Ephedrine Sulfate (Ephedrine Sulfate) 5 - 10 mg IVPUSH ASDIRECTED PRN PRN Reason: IF SYSTOLIC BP LESS THAN 100 Ephedrine Sulfate (Ephedrine Sulfate) Confirm Administered Dose 50 mg .ROUTE .STK-MED ONE Stop: 08/11/17 22:59 Fentanyl (Sublimaze) 100 mcg IVPUSH Q1H PRN PRN Reason: Pain (moderate 4-6) Fentanyl (Sublimaze) Confirm Administered Dose 250 mcg .ROUTE .STK-MED ONE Stop: 08/11/17 23:37 Hydromorphone HCl (Dilaudid Process Developer 15 Mg In Ns 30 Ml) 0 mg IV ASDIRECTED PRN; Protocol PRN Reason: Pain Last Admin: 08/13/17 07:06 Dose: 15 mg Lactated Ringer's (Ringers, Lactated) 1,000 mls @ 999 mls/hr IV .BOLUS ONE Stop: 08/11/17 19:20 Last Admin: 08/11/17 18:15 Dose: 999 mls/hr Lactated Ringer's (Ringers, Lactated) 1,000 mls @ 999 mls/hr IV .BOLUS ONE Stop: 08/11/17 19:20 Last Admin: 08/11/17 19:14 Dose: Not Given Ropivacaine (Naropin 0.2%) Confirm Administered Dose 100 mls @ as directed .ROUTE .STK-MED ONE Stop: 08/11/17 18:47 Oxytocin/Sodium Chloride (Pitocin In Ns 20 Units/1,000 Ml) Confirm Administered Dose 20 unit in 1,000 mls @ as directed .ROUTE .STK-MED ONE Stop: 08/11/17 19:08 Last Admin: 08/11/17 19:49 Dose: Not Given Oxytocin/Sodium Chloride (Pitocin In Ns 20 Units/1,000 Ml) 20 unit in 1,000 mls @ 6 mls/hr IV TITRATE HILARIO; 2 MUNITS/MIN PRN Reason: Protocol Last Titration: 08/11/17 20:46 Dose: 2 munits/min, 6 mls/hr Ropivacaine (Naropin 0.2%) 100 mls @ 0 mls/hr EPIDUR ASDIRECTED HILARIO; Titrate PRN Reason: Protocol Last Titration: 08/11/17 21:06 Dose: 6 ml/hr, 6 mls/hr Lactated Ringer's (Ringers, Lactated) Confirm Administered Dose 1,000 mls @ as directed .ROUTE .STK-MED ONE Stop: 08/11/17 22:59 Lactated Ringer's (Ringers, Lactated) Confirm Administered Dose 2,000 mls @ as directed .ROUTE .STK-MED ONE Stop: 08/11/17 22:59 Potassium Chloride/Dextrose/Sod Cl (D5 1/2 Ns W/ 20 Meq/L Kcl) 1,000 mls @ 125 mls/hr IV ASDIRECTED HILARIO Last Admin: 08/13/17 03:08 Dose: 125 mls/hr Lactated Ringer's (Ringers, Lactated) 500 mls @ 999 mls/hr IV BOLUS HILARIO Stop: 08/12/17 08:30 Last Admin: 08/12/17 07:15 Dose: 999 mls/hr Lidocaine HCl (Xylocaine 1%) Confirm Administered Dose 100 ml .ROUTE .STK-MED ONE Stop: 08/11/17 19:08 Last Admin: 08/12/17 02:26 Dose: Not Given Misoprostol (Cytotec) 50 mcg VAG ONETIME ONE Stop: 08/11/17 17:42 Morphine Sulfate (Duramorph Pf) Confirm Administered Dose 10 mg .ROUTE .STK-MED ONE Stop: 08/11/17 23:31 Naloxone HCl (Narcan) Confirm Administered Dose 0.4 mg .ROUTE .STK-MED ONE Stop: 08/11/17 19:08 Last Admin: 08/12/17 02:26 Dose: Not Given Naloxone HCl (Narcan) 0.4 mg IVPUSH Q2M PRN PRN Reason: Respiratory Distress Ondansetron HCl (Zofran) Confirm Administered Dose 4 mg .ROUTE .STK-MED ONE Stop: 08/11/17 22:59 Oxytocin (Pitocin) Confirm Administered Dose 10 unit .ROUTE .STK-MED ONE Stop: 08/11/17 19:08 Last Admin: 08/12/17 02:26 Dose: Not Given Oxytocin (Pitocin) Confirm Administered Dose 10 unit .ROUTE .STK-MED ONE Stop: 08/11/17 22:59 Oxytocin (Pitocin) Confirm Administered Dose 10 unit .ROUTE .STK-MED ONE Stop: 08/11/17 23:09 Last Admin: 08/11/17 23:56 Dose: 10 unit Propofol (Diprivan 20 Ml) Confirm Administered Dose 200 mg .ROUTE .STK-MED ONE Stop: 08/11/17 23:42 Propofol (Diprivan 20 Ml) Confirm Administered Dose 200 mg .ROUTE .STK-MED ONE Stop: 08/11/17 23:56 - Exam Wound/Incisions: No Drainage General: Alert, Oriented, Cooperative Lungs: Clear to Auscultation, Normal Respiratory Effort Cardiovascular: Regular Rate, Regular Rhythm GI/Abdominal Exam: Normal Bowel Sounds Extremities: Normal Inspection Skin: Warm, Dry, Other (She appears pale. ) Neurological: No New Focal Deficit Psy/Mental Status: Alert, Normal Affect, Normal Mood - Problem List Review Problem List Initiated/Reviewed/Updated: Yes - My Orders Last 24 Hours: Active Orders 24 hr Category Date Time Status Communication Order [RC] ASDIRECTED Care 08/13/17 10:25 Ordered DC Hair Catheter [Urinary Catheter Removal] [RC] Per Care 08/13/17 10:23 Ordered Unit Routine BASIC METABOLIC PANEL,BMP [CHEM] DAILY Lab 08/14/17 05:10 Ordered BASIC METABOLIC PANEL,BMP [CHEM] DAILY Lab 08/15/17 05:10 Ordered BASIC METABOLIC PANEL,BMP [CHEM] DAILY Lab 08/16/17 05:10 Ordered CBC W/O DIFF,HEMOGRAM [HEME] DAILY Lab 08/14/17 05:10 Ordered CBC W/O DIFF,HEMOGRAM [HEME] DAILY Lab 08/15/17 05:10 Ordered CBC W/O DIFF,HEMOGRAM [HEME] DAILY Lab 08/16/17 05:10 Ordered PATIENT RETYPE [BBK] Routine Lab 08/13/17 05:31 Results RED BLOOD CELLS LP [BBK] Routine Lab 08/13/17 05:31 Results TYPE AND SCREEN [BBK] Routine Lab 08/13/17 05:31 Results Acetaminophen/HYDROcodone [[place] 325-5 MG] Med 08/12/17 14:36 Active 1 - 2 tab PO Q4H PRN Docusate Sodium [Colace] Med 08/12/17 23:15 Active 100 mg PO BID Ferrous Sulfate Med 08/12/17 23:15 Active 325 mg PO BIDMEALS Transfuse Red Blood Cells [COMM] Urgent Oth 08/13/17 06:27 Ordered Medication Orders Acetaminophen (Tylenol) 650 mg PO Q4H PRN PRN Reason: Pain (Mild 1-3) and fever Hydrocodone Bitart/Acetaminophen ([place] 325-5 Mg) 1 - 2 tab PO Q4H PRN PRN Reason: Pain Last Admin: 08/13/17 08:50 Dose: 1 tab Admin: 08/13/17 03:04 Dose: 2 tab Admin: 08/12/17 20:22 Dose: 2 tab Admin: 08/12/17 15:19 Dose: 2 tab Docusate Sodium (Colace) 100 mg PO BID [facility] Last Admin: 08/13/17 08:53 Dose: 100 mg Admin: 08/12/17 23:14 Dose: 100 mg Ferrous Sulfate (Ferrous Sulfate) 325 mg PO BIDMEALS [facility] Last Admin: 08/13/17 08:53 Dose: 325 mg Admin: 08/12/17 23:14 Dose: 325 mg Lactated Ringer's (Ringers, Lactated) 1,000 mls @ 100 mls/hr IV ASDIRECTED HILARIO Last Admin: 08/11/17 19:15 Dose: 100 mls/hr Naloxone HCl (Narcan) 0.1 mg IVPUSH Q5M PRN PRN Reason: IF RESP RATE LESS THAN 6 Ondansetron HCl (Zofran Odt) 4 mg PO Q4H PRN PRN Reason: Nausea/Vomiting Last Admin: 08/12/17 08:11 Dose: 4 mg Admin: 08/12/17 00:36 Dose: 4 mg Ondansetron HCl (Zofran) 4 mg IVPUSH Q6H PRN PRN Reason: Nausea/Vomiting Sodium Chloride (Saline Flush) 10 ml FLUSH ASDIRECTED PRN PRN Reason: Keep Vein Open - Assessment Assessment (Free Text/Narrative):: Eating well. Large UOP now. Hgb is only 6.5. - Plan Plan (Free Text/Narrative):: Transfuse 2 units of pRBC's. D/C Hair. Hep lock IV after blood is in. Check CBC 1 hour after last transfusion. I will be going out of town, will turn over care to Dr. Pringle.
[2017-08-13] MEDS ORDERED: hydrOXYzine HCl 100 MG/2 ML SDV IM PRN (17:49)
[2017-08-13] MEDS: Acetaminophen/oxyCODONE 325-5 MG Tab PO PRN (20:18)
[2017-08-14] MEDS: Acetaminophen/oxyCODONE 325-5 MG Tab PO PRN ×6 (01:26→22:34)
[2017-08-14] MEDS: Docusate Sodium 100 MG Cap PO SCH ×2 (08:48→21:33)
[2017-08-14] MEDS: Ferrous Sulfate 325 MG Tab PO SCH ×2 (08:48→17:53)
[2017-08-14] MEDS ORDERED: Bisacodyl 5 MG Tab PO PRN (10:16)
[2017-08-14] MEDS ORDERED: Magnesium Hydroxide 400 MG/5 ML Susp 30 ML Cup PO PRN (17:55)
[2017-08-15] MEDS: Acetaminophen/oxyCODONE 325-5 MG Tab PO PRN ×2 (03:54→08:53)
[2017-08-15 07:31] VITALS: BP 125/59
[2017-08-15] MEDS: Ferrous Sulfate 325 MG Tab PO SCH (08:53)
[2017-08-15] MEDS: Docusate Sodium 100 MG Cap PO SCH (08:53)
--- NOTE | 2017-08-15 11:00 | PCM.DCSUM1 ---
Discharge Summary - Hospital Course Free Text/Narrative:: This 89 year old female prima was admitted on August 11, 2017 at about 39 weeks gestation in labor. She labored hard all day and suffered failure to progress. She underwent a section late that night delivering a boy with APGARS of 8 & 9. Anesthesia was epidural. She received 2 grams of Ancef preoperatively. She did well post operatively but developed anemia with a hgb o 6.5. She was transfused 2 units of pRBC's. She currently is eating well, feels well, moving well and wants to go home. Her Hgb is 8.6. She is discharged to home at this time in good condition. Brief History: See above narrative. - Discharge Data Discharge Date: 08/15/17 Discharge Disposition: Home, Self-Care 01 Condition: Good - Patient Summary/Data Operative Procedure(s) Performed: section. Consults: Consultations 08/12/17 00:25 Respiratory Care Assess and Treatment [CONS] Routine Comment: Physician Instructions: Hospital Course: See above narrative. - Patient Instructions Diet: Usual Diet as Tolerated Activity: No Lifting Over 10 Pounds (For six weeks from surgery), No Strenuous Activities Driving, Other: Do not drive while taking narcotic pain medication. Showering/Bathing: May Shower, No Tub Bathing/Swimming Notify Provider of: Fever, Increased Pain, Swelling and Redness, Drainage, Nausea and/or Vomiting - Discharge Plan Prescriptions/Med Rec: Acetaminophen/oxyCODONE [Percocet 325-5 MG] 1 - 2 tab PO Q4H PRN #30 tablet PRN Reason: Abdominal Pain Home Medications: Home Meds Vits #93/Iron Fum/FA [ Formula Tablet] 1 tab PO DAILY 08/11/17 [History] Acetaminophen/oxyCODONE [Percocet 325-5 MG] 1 - 2 tab PO Q4H PRN #30 tablet 06/24 [Rx] Patient Handouts: Delivery, Care After, Care After Delivery, Preventing Constipation After Surgery Referrals: Esteban Meneses MD [Physician] - (Come to clinic for Hgb in two days. See me in clinic in about two weeks. ) - Discharge Summary/Plan Comment DC Time >30 min.: Yes - General Info Functional Status: Reports: Pain Controlled, Tolerating Diet, Ambulating, Urinating - Review of Systems General: Reports: No Symptoms HEENT: Reports: No Symptoms Pulmonary: Reports: No Symptoms Cardiovascular: Reports: No Symptoms Gastrointestinal: Reports: No Symptoms Genitourinary: Reports: No Symptoms Musculoskeletal: Reports: No Symptoms Skin: Reports: No Symptoms Neurological: Reports: No Symptoms Psychiatric: Reports: No Symptoms - Patient Data Vitals - Most Recent: Last Vital Signs Temp 98.7 F 08/15/17 07:28 Pulse 97 08/15/17 07:28 Resp 16 08/15/17 07:28 BP 125/59 L 08/15/17 07:28 Pulse Ox 96 08/15/17 07:28 Weight - Most Recent: 250 lb 2.49 oz Lab Results - Last 24 hrs: Laboratory Results - last 24 hr 08/15/17 08/15/17 Range/Units 05:10 05:10 WBC 12.0 H (4.5-11.0) K/uL RBC 2.96 L (3.30-5.50) M/uL Hgb 8.6 L (12.0-15.0) g/dL Hct 26.6 L (36.0-48.0) % MCV 90 (80-98) fL MCH 29 (27-31) pg MCHC 32 (32-36) % Plt Count 268 (150-400) K/uL Sodium 138 L (140-148) mmol/L Potassium 3.7 (3.6-5.2) mmol/L Chloride 103 (100-108) mmol/L Carbon Dioxide 25 (21-32) mmol/L Anion Gap 13.7 (5.0-14.0) mmol/L BUN 9 (7-18) mg/dL Creatinine 0.6 (0.6-1.0) mg/dL Est Cr Clr Drug Dosing 123.72 mL/min Estimated GFR (MDRD) > 60 (>60) Glucose 80 (74-106) mg/dL Calcium 8.3 L (8.5-10.1) mg/dL Med Orders - Current: Current Medications Acetaminophen (Tylenol) 650 mg PO Q4H PRN PRN Reason: Pain (Mild 1-3) and fever Bisacodyl (Dulcolax) 5 mg PO ASDIRECTED PRN PRN Reason: Constipation Last Admin: 08/14/17 10:35 Dose: 5 mg Docusate Sodium (Colace) 100 mg PO BID [facility] Last Admin: 08/15/17 08:53 Dose: 100 mg Ferrous Sulfate (Ferrous Sulfate) 325 mg PO BIDMEALS [facility] Last Admin: 08/15/17 08:53 Dose: 325 mg Hydroxyzine HCl (Vistaril) 50 - 75 mg IM Q4H PRN PRN Reason: Pain Magnesium Hydroxide (Milk Of Magnesia) 30 ml PO BID PRN PRN Reason: Constipation Last Admin: 08/14/17 18:37 Dose: 30 ml Naloxone HCl (Narcan) 0.1 mg IVPUSH Q5M PRN PRN Reason: IF RESP RATE LESS THAN 6 Ondansetron HCl (Zofran Odt) 4 mg PO Q4H PRN PRN Reason: Nausea/Vomiting Last Admin: 08/12/17 08:11 Dose: 4 mg Ondansetron HCl (Zofran) 4 mg IVPUSH Q6H PRN PRN Reason: Nausea/Vomiting Oxycodone/Acetaminophen (Percocet 325-5 Mg) 1 - 2 tab PO Q4H PRN PRN Reason: Pain Last Admin: 08/15/17 08:53 Dose: 2 tab Sodium Chloride (Saline Flush) 10 ml FLUSH ASDIRECTED PRN PRN Reason: Keep Vein Open Discontinued Medications Hydrocodone Bitart/Acetaminophen ([place] 325-5 Mg) 1 - 2 tab PO Q4H PRN PRN Reason: Pain Last Admin: 08/13/17 16:36 Dose: 2 tab Bupivacaine HCl (Marcaine 0.5%) Confirm Administered Dose 30 ml .ROUTE .STK-MED ONE Stop: 08/11/17 23:01 Cefazolin Sodium (Ancef) Confirm Administered Dose 2 gm .ROUTE .STK-MED ONE Stop: 08/11/17 23:15 Ephedrine Sulfate (Ephedrine Sulfate) 5 mg IVPUSH ONETIME ONE Stop: 08/11/17 18:21 Last Admin: 08/11/17 20:30 Dose: Not Given Ephedrine Sulfate (Ephedrine Sulfate) 5 - 10 mg IVPUSH ASDIRECTED PRN PRN Reason: IF SYSTOLIC BP LESS THAN 100 Ephedrine Sulfate (Ephedrine Sulfate) Confirm Administered Dose 50 mg .ROUTE .STK-MED ONE Stop: 08/11/17 22:59 Fentanyl (Sublimaze) 100 mcg IVPUSH Q1H PRN PRN Reason: Pain (moderate 4-6) Fentanyl (Sublimaze) Confirm Administered Dose 250 mcg .ROUTE .[employer]-MED ONE Stop: 08/11/17 23:37 Hydromorphone HCl (Dilaudid Resource Program Teacher 15 Mg In Ns 30 Ml) 0 mg IV ASDIRECTED PRN; Protocol PRN Reason: Pain Last Admin: 08/13/17 07:06 Dose: 15 mg Lactated Ringer's (Ringers, Lactated) 1,000 mls @ 999 mls/hr IV .BOLUS ONE Stop: 08/11/17 19:20 Last Admin: 08/11/17 18:15 Dose: 999 mls/hr Lactated Ringer's (Ringers, Lactated) 1,000 mls @ 999 mls/hr IV .BOLUS ONE Stop: 08/11/17 19:20 Last Admin: 08/11/17 19:14 Dose: Not Given Ropivacaine (Naropin 0.2%) Confirm Administered Dose 100 mls @ as directed .ROUTE .[employer]-MED ONE Stop: 08/11/17 18:47 Oxytocin/Sodium Chloride (Pitocin In Ns 20 Units/1,000 Ml) Confirm Administered Dose 20 unit in 1,000 mls @ as directed .ROUTE .[employer]-MED ONE Stop: 08/11/17 19:08 Last Admin: 08/11/17 19:49 Dose: Not Given Lactated Ringer's (Ringers, Lactated) 1,000 mls @ 100 mls/hr IV ASDIRECTED HILARIO Last Admin: 08/11/17 19:15 Dose: 100 mls/hr Oxytocin/Sodium Chloride (Pitocin In Ns 20 Units/1,000 Ml) 20 unit in 1,000 mls @ 6 mls/hr IV TITRATE HILARIO; 2 MUNITS/MIN PRN Reason: Protocol Last Titration: 08/11/17 20:46 Dose: 2 munits/min, 6 mls/hr Ropivacaine (Naropin 0.2%) 100 mls @ 0 mls/hr EPIDUR ASDIRECTED HILARIO; Titrate PRN Reason: Protocol Last Titration: 08/11/17 21:06 Dose: 6 ml/hr, 6 mls/hr Lactated Ringer's (Ringers, Lactated) Confirm Administered Dose 1,000 mls @ as directed .ROUTE .[facility]-MED ONE Stop: 08/11/17 22:59 Lactated Ringer's (Ringers, Lactated) Confirm Administered Dose 2,000 mls @ as directed .ROUTE .[facility] ONE Stop: 08/11/17 22:59 Potassium Chloride/Dextrose/Sod Cl (D5 1/2 Ns W/ 20 Meq/L Kcl) 1,000 mls @ 125 mls/hr IV ASDIRECTED HILARIO Last Admin: 08/13/17 03:08 Dose: 125 mls/hr Lactated Ringer's (Ringers, Lactated) 500 mls @ 999 mls/hr IV BOLUS HILARIO Stop: 08/12/17 08:30 Last Admin: 08/12/17 07:15 Dose: 999 mls/hr Lidocaine HCl (Xylocaine 1%) Confirm Administered Dose 100 ml .ROUTE .[facility] ONE Stop: 08/11/17 19:08 Last Admin: 08/12/17 02:26 Dose: Not Given Misoprostol (Cytotec) 50 mcg VAG ONETIME ONE Stop: 08/11/17 17:42 Morphine Sulfate (Duramorph Pf) Confirm Administered Dose 10 mg .ROUTE .[facility] ONE Stop: 08/11/17 23:31 Naloxone HCl (Narcan) Confirm Administered Dose 0.4 mg .ROUTE .[facility] ONE Stop: 08/11/17 19:08 Last Admin: 08/12/17 02:26 Dose: Not Given Naloxone HCl (Narcan) 0.4 mg IVPUSH Q2M PRN PRN Reason: Respiratory Distress Ondansetron HCl (Zofran) Confirm Administered Dose 4 mg .ROUTE .[facility] ONE Stop: 08/11/17 22:59 Oxytocin (Pitocin) Confirm Administered Dose 10 unit .ROUTE .[facility]-MED ONE Stop: 08/11/17 19:08 Last Admin: 08/12/17 02:26 Dose: Not Given Oxytocin (Pitocin) Confirm Administered Dose 10 unit .ROUTE .[facility] ONE Stop: 08/11/17 22:59 Oxytocin (Pitocin) Confirm Administered Dose 10 unit .ROUTE .[facility]-MED ONE Stop: 08/11/17 23:09 Last Admin: 08/11/17 23:56 Dose: 10 unit Propofol (Diprivan 20 Ml) Confirm Administered Dose 200 mg .ROUTE .STK-MED ONE Stop: 08/11/17 23:42 Propofol (Diprivan 20 Ml) Confirm Administered Dose 200 mg .ROUTE .STK-MED ONE Stop: 08/11/17 23:56 - Exam General: Reports: Alert, Oriented, Cooperative, No Acute Distress Lungs: Reports: Clear to Auscultation, Normal Respiratory Effort Cardiovascular: Reports: Regular Rate, Regular Rhythm GI/Abdominal Exam: Normal Bowel Sounds, Soft, Non-Tender Back Exam: Reports: Normal Inspection, Full Range of Motion Extremities: Normal Inspection, Normal Range of Motion Skin: Reports: Warm, Dry, Intact Wound/Incisions: Reports: Healing Well Neurological: Reports: No New Focal Deficit Psy/Mental Status: Reports: Alert, Normal Affect, Normal Mood *Q Meaningful Use (DIS) - VTE *Q VTE Criteria *Q: - Stroke *Q Stroke Criteria *Q: - AMI *Q AMI Criteria *Q:
--- NOTE | 2017-11-22 10:01 | PN ---
DATE OF SERVICE: 08/14/2017 SUBJECTIVE: The patient is doing well. Pain is well controlled. No nausea, vomiting, shortness of breath, or chest pain. OBJECTIVE: VITAL SIGNS: Stable. CARDIOVASCULAR: Regular rate. RESPIRATORY: Lungs clear to auscultation bilaterally. ABDOMEN: Bowel sounds are positive. ASSESSMENT: Status post section. PLAN: We will continue to work on diet and activity today. Anticipate discharge in the next 24 hours. Rick Pringle MD /[id number]
== END 2017-08-15 11:50 | disposition home or self-care (01) | DRG 766 ==
LOC: JP.OBCHECK 17:19 → JP.OB 18:00 → JP.MS 23:34 → OBSVTOIN 23:34
PROVIDERS: ADMIT Nurse Practitioner Family; ATTEND Surgery
PROC: 10D00Z1 Extraction of Products of Conception, Low, Open Approach (ICD-10-PCS; principal; 2017-08-11)
PROC: 10907ZC Drainage of Amniotic Fluid, Therapeutic from Products of Conception, Via Natural or Artificial Opening (ICD-10-PCS; 2017-08-11)
PROC: 00HU33Z Insertion of Infusion Device into Spinal Canal, Percutaneous Approach (ICD-10-PCS; 2017-08-11)
PROC: 30233N1 Transfusion of Nonautologous Red Blood Cells into Peripheral Vein, Percutaneous Approach (ICD-10-PCS; 2017-08-13)
DX: O33.9 Maternal care for disproportion, unspecified (principal); O32.4XX0 Maternal care for high head at term, not applicable or unspecified; Z3A.39 39 weeks gestation of pregnancy; Z37.0 Single live birth; O90.81 Anemia of the puerperium; O75.81 Maternal exhaustion complicating labor and delivery
CPT/HCPCS: 36415; 36430; 80048; 80305; 85027; 85610; 85730; 86850; 86900; 86901; 86920; 86922; 88307; 94762; 99211; A9270-GY; J0690; J1170; J2270; J2405; J2590; J2704; J2795; J3010; J3480; J7120; P9016

== ENCOUNTER 2017-11-23 18:09 | Emergency (ER) | payer SELFPAY ==
[2017-11-23 18:18] VITALS: BP 141/85
--- NOTE | 2017-11-23 18:57 | EDM.PDOC ---
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 She started getting ill 2 days ago in the evening and has missed work since that day, Started with cough and congestion then developed headache nausea vomiting muscle aches fatigue and fever as high as 104 which comes down with acetaminophen. Boyfriend not ill She has a 3-month-old born by section for failure to progress at home, She did not have immunization for influenza. Headache Pain Score (Numeric/FACES): 8 - Related Data Allergies Allergy/AdvReac Type Severity Reaction Status Date / Time estradiol cypionate AdvReac Bleeding Verified 11/23/17 18:19 [From Depo-Estradiol] Home Meds: Home Meds Norgestimate-Ethinyl Estradiol [Trinessa Lo Tablet] 1 tab PO DAILY 11/23/17 [ History] Oseltamivir [Tamiflu] 75 mg PO BID #10 cap 11/23/17 [Rx] Past Medical History [employer] History: Reports: Musculoskeletal History: Reports: Other (See Below) Other Musculoskeletal History: collarbone fx Endocrine/Metabolic History: Reports: Obesity/BMI 30+ Dermatologic History: Reports: Other (See Below) Other Dermatologic History: excema - Past Surgical History Other HEENT Surgeries/Procedures: wisdom teeth removal 2014 Female Surgical History: Reports: Section Social & Family History - Family History Family Medical History: Noncontributory - Tobacco Use Smoking Status *Q: Never Smoker Second Hand Smoke Exposure: No - Caffeine Use Caffeine Use: Reports: None - Recreational Drug Use Recreational Drug Use: No ED ROS GENERAL - Review of Systems Review Of Systems: See Below Constitutional: Reports: Fever, Chills, Diaphoresis, Decreased Appetite HEENT: Reports: Rhinitis. Denies: Ear Discharge, Ear Pain, Eye Discharge, Throat Pain Respiratory: Reports: Cough. Denies: Shortness of Breath Cardiovascular: Denies: Chest Pain GI/Abdominal: Reports: Decreased Appetite, Nausea, Vomiting. Denies: Abdominal Pain, Constipation, Diarrhea : Reports: No Symptoms Musculoskeletal: Reports: Muscle Pain Skin: Reports: No Symptoms Neurological: Reports: Headache, Other (Fatigue). Denies: Confusion Psychiatric: Reports: No Symptoms Immunologic: Reports: No Symptoms ED EXAM, GENERAL - Physical Exam Exam: See Below Exam Limited By: No Limitations General Appearance: Alert, Mild Distress, Other (Fever, tachycardia but normal saturation, no difficulty breathing or speaking, repeat pulse was 120) Eye Exam: Bilateral Eye: Normal Inspection Ears: Normal External Exam, Normal Canal, Hearing Grossly Normal Nose: Nasal Swelling (Mild) Throat/Mouth: Normal Inspection, Normal Oropharynx, Normal Voice Head: Atraumatic, Normocephalic Neck: Normal Inspection, Supple. No: Lymphadenopathy (R), Lymphadenopathy (L) Respiratory/Chest: No Respiratory Distress, Lungs Clear, No Accessory Muscle Use Cardiovascular: Normal Peripheral Pulses, Tachycardia GI/Abdominal: Non-Tender Extremities: Normal Inspection Neurological: Alert, Oriented, No Motor/Sensory Deficits Psychiatric: Normal Affect, Normal Mood Skin Exam: Warm, Dry, Normal Color Lymphatic: No Adenopathy Course - Vital Signs Last Recorded V/S: Last Vital Signs Temp 39.1 C H 11/23/17 18:23 Pulse 143 H 11/23/17 18:23 Resp 16 11/23/17 18:23 BP 141/85 H 11/23/17 18:23 Pulse Ox 99 11/23/17 18:23 - Re-Assessments/Exams Free Text/Narrative Re-Assessment/Exam: 11/23/17 18:52 22-year-old female who works as a BLOOD BANK WORKER in a [employer], fever cough headache muscle aches as well as some nausea and vomiting. Of 56 residents, 22 are believed to have influenza Symptoms consistent with influenza She does have a 3-month-old home so treatment with Tamiflu is recommended 11/24/17 00:39 Departure - Departure Time of Disposition: 18:55 Disposition: Home, Self-Care 01 Condition: Good Clinical Impression: Influenza - Discharge Information Prescriptions: Oseltamivir [Tamiflu] 75 mg PO BID #10 cap Instructions: Influenza, Adult Referrals: Felipe Russell MD [Primary Care Provider] - Forms: ED Department Discharge, ED Return to Work/School Form
== END 2017-11-23 19:01 | disposition home or self-care (01) ==
LOC: JP.ED 18:09
DX: J11.1 Influenza due to unidentified influenza virus with other respiratory manifestations (principal); Z88.8 Allergy status to other drugs, medicaments and biological substances
CPT/HCPCS: 99283